=== PATIENT | female | born 1970 | race Native Hawaiian/Other Pacific Islander ===

== ENCOUNTER 2020-05-19 11:51 | Outpatient (CLI) | payer OTHER | END 2020-05-19 20:56 | disposition home or self-care (01) | LOC: LAB 11:51 | DX: R06.02 Shortness of breath (principal); R05 Cough | CPT/HCPCS: 87635; G2023; U0003 ==

== ENCOUNTER 2020-08-31 14:19 | Outpatient (CLI) | payer OTHER | END 2020-08-31 19:14 | disposition home or self-care (01) | LOC: US 14:19 | PROVIDERS: ATTEND Nurse Practitioner Family | DX: R10.10 Upper abdominal pain, unspecified (principal) ==

== ENCOUNTER 2020-09-14 08:21 | Outpatient (CLI) | payer OTHER | END 2020-09-14 19:12 | disposition home or self-care (01) | LOC: NM 08:21 | PROVIDERS: ATTEND Nurse Practitioner Family | DX: R10.9 Unspecified abdominal pain (principal); R14.1 Gas pain | CPT/HCPCS: A9537 ==

== ENCOUNTER 2021-02-19 08:56 | Outpatient (CLI) | payer OTHER | END 2021-02-19 22:39 | disposition home or self-care (01) | LOC: MRI 08:56 | PROVIDERS: ATTEND Physician Assistant | DX: M54.16 Radiculopathy, lumbar region (principal) ==

== ENCOUNTER 2021-06-08 14:35 | Outpatient (CLI) | payer OTHER | END 2021-06-08 20:55 | disposition home or self-care (01) | LOC: RAD 14:35 | PROVIDERS: ATTEND Nurse Practitioner Family | DX: R06.02 Shortness of breath (principal); R05 Cough ==